=== PATIENT | female | born 1955 | race Caucasian/White ===

== ENCOUNTER 2017-05-03 18:06 | Inpatient (IN) | payer MEDICAID ==
[~2017-05-03] VITALS: Ht 160 cm; Wt 58.0 kg
[~2017-05-03 18:06] MED LIST: L.AC1CAP6 PO; MAGN500C15 PO; POTA99TA21 PO; VALS40TA10 PO
[2017-05-03] MEDS ORDERED: ONDANSETRON HCL 4 MG/2 ML VIAL ONE (19:14)
[2017-05-03] MEDS ORDERED: SODIUM CHLORIDE 0.9% 1000ML 1,000 ML IV ONE (19:14)
[2017-05-03 19:48] LABS: WHITE BLOOD COUNT (AUTO) 15.4 K/uL (4.8-10.8)
[2017-05-03 19:49] LABS: BASOPHILS % (AUTO) 0.4 % (0.0-5.0); EOSINOPHILS % (AUTO) 0.1 % (0.0-8.0); HEMATOCRIT 33.6 % (36-48); LYMPHOCYTES % (AUTO) 8.4 % (21.0-51.0); MEAN CORPUSCULAR HEMOGLOBIN 30.1 pg (27.0-33.0); MEAN CORPUSCULAR HGB CONC 33.6 g/dL (32.0-36.0); MEAN CORPUSCULAR VOLUME 89.5 fL (79-99); MONOCYTES % (AUTO) 5.7 % (3.0-13.0); NEUTROPHILS % (AUTO) 85.4 % (40.0-77.0); PLATELET COUNT (AUTO) 236 K/uL (130-400); RED BLOOD CELL COUNT(AUTO) 3.75 MIL/uL (4.00-5.50); RED CELL DISTRIBUTION WIDTH 12.6 % (11.0-15.5)
[2017-05-03 20:04] LABS: CARBON DIOXIDE 27 mmol/L (21-32); CHLORIDE 106 mmol/L (101-111); CREATININE 0.8 mg/dL (0.5-1.5); GLOMERULAR FILTR. RATE CALC 78 mL/min (>60); GLUCOSE,RANDOM 137 mg/dL (70-105); POTASSIUM 3.8 mmol/L (3.5-5.1); SODIUM SERUM 142 mmol/L (136-145); UREA NITROGEN, BLOOD 20 mg/dL (7-18)
[2017-05-03 20:12] LABS: B-TYPE NATRIURETIC PEPTIDE 25 pg/mL (0-100)
[2017-05-03 20:18] LABS: ALANINE AMINOTRANSFERASE 44 U/L (12-78); ALBUMIN 3.6 g/dL (3.5-5.0); ASPARTATE AMINOTRANSFERASE 50 U/L (10-37); BILIRUBIN,TOTAL 0.6 mg/dL (0.2-1.0); CREATINE KINASE MB < 0.5 ng/mL (0.5-3.6); CREATINE KINASE, TOTAL 50 U/L (21-232); TOTAL PROTEIN, SERUM 6.5 g/dL (6.0-8.3)
[2017-05-03 22:37] LABS: APPEARANCE,URINE Cloudy (CLEAR); BILIRUBIN,URINE Negative (NEGATIVE); COLOR,URINE Dark Yellow (YELLOW); GLUCOSE, URINE (UA) TRACE mg/dL (NEGATIVE); KETONES,URINE 15 mg/dL (NEGATIVE); LEUKOCYTE ESTERASE ,URINE Negative (NEGATIVE); NITRATE,URINE Negative (NEGATIVE); OCCULT BLOOD,URINE Negative (NEGATIVE); PROTEIN,URINE Trace (NEGATIVE)
[2017-05-03 22:56] LABS: BACTERIA,URINE Rare /HPF (None Seen); MUCUS,URINE Many LPF (None Seen); RBC,URINE None Seen /HPF (0-1); SQUAMOUS EPITHELIAL CELL,UR Moderate /LPF (0-2)
[2017-05-03] MEDS ORDERED: ZOSYN 3.375GM+NS 50ML 50 ML IV ONE (23:12)
[2017-05-03] MEDS ORDERED: VANCOMYCIN 1GM+NS 250ML 250 ML IV ONE (23:12)
[2017-05-04] VITALS (10 sets, daily range): BP systolic 90–107; BP diastolic 51–75
[2017-05-04 04:06] LABS: HEMATOCRIT 28.8 % (36-48); MEAN CORPUSCULAR HEMOGLOBIN 32.9 pg (27.0-33.0); MEAN CORPUSCULAR VOLUME 91.4 fL (79-99); PLATELET COUNT (AUTO) 188 K/uL (130-400); RED BLOOD CELL COUNT(AUTO) 3.15 MIL/uL (4.00-5.50); RED CELL DISTRIBUTION WIDTH 12.7 % (11.0-15.5); WHITE BLOOD COUNT (AUTO) 9.2 K/uL (4.8-10.8)
[2017-05-04 04:09] LABS: CREATININE 0.8 mg/dL (0.5-1.5)
[2017-05-04 04:34] LABS: BAND NEUTROPHILS % (MANUAL) 1 % (0-2); LYMPHOCYTES % (MANUAL) 10 % (22-44); MAN.DIFF COMMENT-IMPRESSION MANUAL DIFFERENTIAL; MONOCYTES % (MANUAL) 14 % (2-9); PLATELET MORPHOLOGY COMMENT ADEQUATE; SEGMENTED NEUTROPHILS % 75 % (40-70)
[2017-05-04] MEDS ORDERED: ONDANSETRON HCL 4 MG/2 ML VIAL IVP PRN (05:15)
[2017-05-04] MEDS ORDERED: NITROGLYCERIN 0.4 MG SL TAB SL ONE (07:51)
[2017-05-04] MEDS: ZOSYN 3.375GM+NS 50ML 50 ML IV SCH ×2 (07:55→15:31)
[2017-05-04] MEDS: PANTOPRAZOLE SODIUM 40 MG TABLET.DR PO SCH (07:55)
[2017-05-04] MEDS ORDERED: ACETAMINOPHEN 325 MG TAB ONE (08:12)
[2017-05-04] MEDS ORDERED: MORPHINE SULFATE 2 MG/ML 1ML SYG IVP PRN (08:15)
[2017-05-04 09:04] LABS: CREATINE KINASE MB < 0.5 ng/mL (0.5-3.6); CREATINE KINASE, TOTAL 40 U/L (21-232); MYOGLOBIN 34 ng/mL (10-92); TROPONIN I < 0.04 ng/mL (0.00-0.06)
[2017-05-04] MEDS: SODIUM CHLORIDE 0.9% 1000ML 500 ML IV SCH (12:42)
[2017-05-04] MEDS: ACETAMINOPHEN 325 MG TAB PO PRN (13:42)
[2017-05-04] MEDS ORDERED: HYDRALAZINE HCL 20 MG/ML VIAL IV PRN (14:30)
[2017-05-04] MEDS ORDERED: LACTULOSE 20 GM/30 ML UDCUP PO PRN (14:30)
[2017-05-04] MEDS: LACTOBACILLUS RHAMNOSUS GG 1 EACH CAP.SPRINK PO SCH (15:31)
[2017-05-04] MEDS: ENOXAPARIN SODIUM 40 MG/0.4 ML SYRINGE SQ SCH (15:32)
[2017-05-04] MEDS: INDOMETHACIN 25 MG CAP PO SCH (17:01)
[2017-05-04] MEDS: IPRATROPIUM/ALBUTEROL SULFATE 3 ML SOLUTION IH PRN (19:25)
[2017-05-05] MEDS: ZOSYN 3.375GM+NS 50ML 50 ML IV SCH ×3 (00:42→16:15)
[2017-05-05] MEDS: SODIUM CHLORIDE 0.9% 1000ML 500 ML IV SCH ×2 (00:43→08:00)
[2017-05-05] MEDS: IPRATROPIUM/ALBUTEROL SULFATE 3 ML SOLUTION IH PRN (01:05)
[2017-05-05 03:12] VITALS: BP 118/72
[2017-05-05 04:15] LABS: BASOPHILS % (AUTO) 0.6 % (0.0-5.0); EOSINOPHILS % (AUTO) 0.6 % (0.0-8.0); LYMPHOCYTES % (AUTO) 14.4 % (21.0-51.0); MEAN CORPUSCULAR HEMOGLOBIN 30.3 pg (27.0-33.0); MEAN CORPUSCULAR HGB CONC 33.4 g/dL (32.0-36.0); MEAN CORPUSCULAR VOLUME 90.8 fL (79-99); MONOCYTES % (AUTO) 10.6 % (3.0-13.0); NEUTROPHILS % (AUTO) 73.8 % (40.0-77.0); PLATELET COUNT (AUTO) 163 K/uL (130-400); RED BLOOD CELL COUNT(AUTO) 2.86 MIL/uL (4.00-5.50); RED CELL DISTRIBUTION WIDTH 12.8 % (11.0-15.5); WHITE BLOOD COUNT (AUTO) 7.9 K/uL (4.8-10.8)
[2017-05-05 04:24] LABS: CREATININE 0.8 mg/dL (0.5-1.5); POTASSIUM 3.4 mmol/L (3.5-5.1)
[2017-05-05 07:31] VITALS: BP 101/61
[2017-05-05] MEDS: MAGNESIUM OXIDE 400 MG TABLET PO SCH (08:09)
[2017-05-05] MEDS: PANTOPRAZOLE SODIUM 40 MG TABLET.DR PO SCH (08:09)
[2017-05-05] MEDS: HOME MEDICATION 1 EACH PO SCH (08:10)
[2017-05-05] MEDS: LACTOBACILLUS RHAMNOSUS GG 1 EACH CAP.SPRINK PO SCH (08:10)
[2017-05-05] MEDS: ENOXAPARIN SODIUM 40 MG/0.4 ML SYRINGE SQ SCH (08:10)
[2017-05-05] MEDS: NON-FORMULARY MEDICATION 1 EACH (Magnesium Oxide (Magnesium) 500 MG) PO SCH (08:10)
[2017-05-05] MEDS: INDOMETHACIN 25 MG CAP PO SCH (08:11)
[2017-05-05] MEDS: ACETAMINOPHEN 325 MG TAB PO PRN (09:13)
[2017-05-05] MEDS ORDERED: LIDOCAINE HCL-MPF 1% 2ML VIAL IVP PRN (09:30)
[2017-05-05] MEDS ORDERED: POTASSIUM CHLORIDE 10% ELIXIR 20 MEQ/15 ML UDCUP PO PRN (09:30)
[2017-05-05] MEDS ORDERED: POTASSIUM CHLORIDE 20MEQ/100ML 100 ML IV PRN (09:30)
[2017-05-05] MEDS ORDERED: INDOMETHACIN 25 MG CAP PO SCH (10:00)
[2017-05-05 11:26] VITALS: BP 103/60
[2017-05-05] MEDS ORDERED: NAPROXEN 250 MG TAB PO PRN (13:15)
[2017-05-05 13:33] LABS: HEMATOCRIT 26.1 % (36-48)
[2017-05-05] MEDS: POTASSIUM CHLORIDE 20 MEQ ERTAB PO PRN ×2 (14:00→17:57)
[2017-05-05 16:00] VITALS: BP 113/76
[2017-05-05] MEDS: POLYETHYLENE GLYCOL 3350 17 GM POWD.PACK PO SCH (16:15)
[2017-05-05 19:50] VITALS: BP 96/64
[2017-05-06] VITALS: BP 108/70
[2017-05-06] MEDS: ZOSYN 3.375GM+NS 50ML 50 ML IV SCH ×3 (00:27→16:50)
[2017-05-06 04:00] VITALS: BP 115/67
[2017-05-06 05:16] LABS: BASOPHILS % (AUTO) 0.7 % (0.0-5.0); EOSINOPHILS % (AUTO) 2.8 % (0.0-8.0); HEMATOCRIT 25.7 % (36-48); LYMPHOCYTES % (AUTO) 26.1 % (21.0-51.0); MEAN CORPUSCULAR HEMOGLOBIN 31.4 pg (27.0-33.0); MEAN CORPUSCULAR HGB CONC 34.9 g/dL (32.0-36.0); MONOCYTES % (AUTO) 10.8 % (3.0-13.0); NEUTROPHILS % (AUTO) 59.6 % (40.0-77.0); PLATELET COUNT (AUTO) 169 K/uL (130-400); RED BLOOD CELL COUNT(AUTO) 2.85 MIL/uL (4.00-5.50); RED CELL DISTRIBUTION WIDTH 12.9 % (11.0-15.5)
[2017-05-06 05:25] LABS: CREATININE 0.6 mg/dL (0.5-1.5); POTASSIUM 3.5 mmol/L (3.5-5.1); RETICULOCYTE % (AUTO) 1.04 % (0.42-2.23)
[2017-05-06 05:48] LABS: % IRON SATURATION 16.2 % (22-44)
[2017-05-06] MEDS: ACETAMINOPHEN 325 MG TAB PO PRN (06:01)
[2017-05-06 07:41] VITALS: BP 123/87
[2017-05-06] MEDS: HOME MEDICATION 1 EACH PO SCH (09:00)
[2017-05-06] MEDS: NON-FORMULARY MEDICATION 1 EACH (Magnesium Oxide (Magnesium) 500 MG) PO SCH (09:00)
[2017-05-06] MEDS: PANTOPRAZOLE SODIUM 40 MG TABLET.DR PO SCH (09:24)
[2017-05-06] MEDS: POTASSIUM CHLORIDE 20 MEQ ERTAB PO PRN ×2 (09:25→10:15)
[2017-05-06] MEDS: MAGNESIUM OXIDE 400 MG TABLET PO SCH (09:25)
[2017-05-06] MEDS: POLYETHYLENE GLYCOL 3350 17 GM POWD.PACK PO SCH (09:25)
[2017-05-06] MEDS: LACTOBACILLUS RHAMNOSUS GG 1 EACH CAP.SPRINK PO SCH (09:25)
[2017-05-06 11:00] LABS: ALBUMIN 3.1 g/dL (3.5-5.0); BILIRUBIN,DIRECT 0.1 mg/dL (0.0-0.3); BILIRUBIN,TOTAL 0.4 mg/dL (0.2-1.0); CRP QUANTITATIVE 66.7 mg/L (0.00-9.0); TOTAL PROTEIN, SERUM 6.2 g/dL (6.0-8.3)
[2017-05-06 11:43] VITALS: BP 120/83
[2017-05-06 16:00] VITALS: BP 122/71
[2017-05-06 19:51] VITALS: BP 109/65
[2017-05-07 00:16] VITALS: BP 107/67
[2017-05-07] MEDS: ZOSYN 3.375GM+NS 50ML 50 ML IV SCH ×3 (00:32→16:00)
[2017-05-07 04:06] VITALS: BP 118/77
[2017-05-07 04:21] LABS: BASOPHILS % (AUTO) 1.2 % (0.0-5.0); EOSINOPHILS % (AUTO) 4.4 % (0.0-8.0); MEAN CORPUSCULAR HEMOGLOBIN 32.1 pg (27.0-33.0); MEAN CORPUSCULAR HGB CONC 35.6 g/dL (32.0-36.0); MEAN CORPUSCULAR VOLUME 90.2 fL (79-99); MONOCYTES % (AUTO) 9.2 % (3.0-13.0); NEUTROPHILS % (AUTO) 56.2 % (40.0-77.0); NUCLEATED RED BLOOD CELLS 0.1 % (0.0-0.19); PLATELET COUNT (AUTO) 225 K/uL (130-400); RED BLOOD CELL COUNT(AUTO) 2.99 MIL/uL (4.00-5.50); RED CELL DISTRIBUTION WIDTH 13.1 % (11.0-15.5); WHITE BLOOD COUNT (AUTO) 5.1 K/uL (4.8-10.8)
[2017-05-07 04:31] LABS: CREATININE 0.7 mg/dL (0.5-1.5); POTASSIUM 3.6 mmol/L (3.5-5.1)
[2017-05-07 07:00] VITALS: BP 140/90
[2017-05-07] MEDS: NON-FORMULARY MEDICATION 1 EACH (Magnesium Oxide (Magnesium) 500 MG) PO SCH (08:39)
[2017-05-07] MEDS: POLYETHYLENE GLYCOL 3350 17 GM POWD.PACK PO SCH (09:00)
[2017-05-07] MEDS: HOME MEDICATION 1 EACH PO SCH (09:00)
[2017-05-07] MEDS: PANTOPRAZOLE SODIUM 40 MG TABLET.DR PO SCH (09:38)
[2017-05-07] MEDS: LACTOBACILLUS RHAMNOSUS GG 1 EACH CAP.SPRINK PO SCH (09:38)
[2017-05-07] MEDS: MAGNESIUM OXIDE 400 MG TABLET PO SCH (09:38)
[2017-05-07 11:00] VITALS: BP 135/85
[2017-05-07] MEDS: POTASSIUM CHLORIDE 20 MEQ ERTAB PO PRN (13:09)
[2017-05-07] MEDS ORDERED: FERR325T22 PO (15:11)
[2017-05-07] MEDS ORDERED: AMOX-429 PO (15:32)
== END 2017-05-07 16:40 | disposition home or self-care (01) | DRG 207 ==
LOC: EDH 18:06 → 2AH 18:07
PROVIDERS: ADMIT Family Medicine; ATTEND Family Medicine
DX: I95.9 Hypotension, unspecified (principal); J90 Pleural effusion, not elsewhere classified; I31.9 Disease of pericardium, unspecified; E11.9 Type 2 diabetes mellitus without complications; D72.829 Elevated white blood cell count, unspecified; D64.9 Anemia, unspecified; R55 Syncope and collapse; G30.9 Alzheimer's disease, unspecified; F02.80 Dementia in other diseases classified elsewhere, unspecified severity, without behavioral disturbance, psychotic disturbance, mood disturbance, and anxiety; E78.5 Hyperlipidemia, unspecified; I10 Essential (primary) hypertension; I25.10 Atherosclerotic heart disease of native coronary artery without angina pectoris; Z90.49 Acquired absence of other specified parts of digestive tract; Z95.0 Presence of cardiac pacemaker; Z83.3 Family history of diabetes mellitus; Z82.49 Family history of ischemic heart disease and other diseases of the circulatory system; R09.1 Pleurisy
CPT/HCPCS: 36415; 71010; 71020; 71250; 80048; 80053; 80076; 81001; 82270; 82550; 82553; 82607; 82728; 82746; 83874; 83880; 84484; 85025; 85651; 86038; 86141; 86431; 86850; 86880; 86900; 86901; 86922; 87040; 87088; 87633; 87804; 93005; 93306; 93308; 94640; 94664; J1650; J2405; J2543; J3370; J7030